=== PATIENT | male | born 1995 | race African-American/Black ===

== ENCOUNTER 2018-03-10 19:53 | Emergency (ER) | payer BC ==
[~2018-03-10] VITALS: Ht 185.4 cm; Wt 102.1 kg
[2018-03-10 21:19] VITALS: BP 122/76
[2018-03-10] MEDS ORDERED: PREDNISONE 20 M20 MG PO (21:26)
[2018-03-10] MEDS ORDERED: MOBIC7.5 MG PO (21:26)
== END 2018-03-10 21:55 | disposition home or self-care (01) ==
LOC: ER 19:53
DX: J02.8 Acute pharyngitis due to other specified organisms (principal); B97.89 Other viral agents as the cause of diseases classified elsewhere

== ENCOUNTER 2021-08-27 12:08 | Emergency (ER) | payer BC ==
[~2021-08-27] VITALS: Ht 185.4 cm; Wt 102.1 kg
[~2021-08-27 12:08] MED LIST: MOBIC7.5 MG PO; PREDNISONE 20 M20 MG PO
== END 2021-08-27 13:44 | disposition home or self-care (01) ==
LOC: ER 12:08
DX: U07.1 COVID-19 (principal)